=== PATIENT | female | born 1960 | race Caucasian/White ===

== ENCOUNTER → 2017-07-20 | Outpatient (CLI) | payer MEDICARE ==
--- NOTE | 2017-07-21 11:33 | XR ---
EXAMINATION TYPE: XR cervical spine comp DATE OF EXAM: 07/20/2017 COMPARISON: 03/26/2012 HISTORY: 56-year-old female with right arm numbness after hitting head 3 days ago, neck surgery in 25 04. TECHNIQUE: 5 views FINDINGS: No predental space widening or prevertebral soft tissue swelling. Mild endplate spondylosis above the fusion C3-C4. ACDF changes are present from C4 through C7 levels. Alignment is maintained. There is minimal bony spondylotic near foraminal narrowing on the left at C6-C7. Normal odontoid view. IMPRESSION: Uncomplicated appearance to the C4-C7 ACDF. There may be minimal bony neural foraminal narrowing on t he left at C6/C7.
== END ==
LOC: RADXRMAIN 15:51
PROVIDERS: ATTEND Nurse Practitioner Family
DX: M54.2 Cervicalgia (principal); R20.0 Anesthesia of skin; Z98.1 Arthrodesis status
CPT/HCPCS: 72050

== ENCOUNTER → 2020-07-16 | Outpatient (CLI) | payer MEDICARE ==
--- NOTE | 2020-07-16 16:01 | XR ---
Cervical spine HISTORY: Neck pain 6 views of the cervical spine correlated prior exam 07/20/2017 Patient is status post anterior cervical fusion and discectomy at C4-C7 as noted on prior exam. There is anatomic alignment. No significant foraminal encroachment evident, oblique images not optimal for the lower foramen on the left. Prevertebral soft tissues are normal. IMPRESSION: No acute fracture or subluxation.
--- NOTE | 2020-07-16 16:08 | XR ---
Lumbosacral spine HISTORY: Chronic back pain 5 views lumbosacral spine Lumbar vertebral bodies show preserved height, alignment, and bone mineralization. There is no eviden t spondylolysis. Anterolisthesis grade 1 L4-5. There is multilevel spondylosis. Some loss of disc hei ght L4-5 and L5-S1. Sclerosis is present in the posterior elements of the lower lumbar spine IMPRESSION: Degenerative disc disease and facet arthropathy. Listhesis L4-5.
== END | disposition home or self-care (01) ==
LOC: RADXRMAIN 13:05
PROVIDERS: ATTEND Nurse Practitioner Family
DX: M43.16 Spondylolisthesis, lumbar region (principal); M51.36 Other intervertebral disc degeneration, lumbar region; M47.816 Spondylosis without myelopathy or radiculopathy, lumbar region; M54.2 Cervicalgia
CPT/HCPCS: 72050; 72110

== ENCOUNTER → 2022-11-11 | Outpatient (CLI) | payer MEDICARE ==
[2022-11-11 13:45] LABS: African American GFR (CKD) >90 (>60 ml/min/1.73 sqM); Blood Urea Nitrogen 15 mg/dL (7-17); Non-African American GFR(CKD) >90 (>60 ml/min/1.73 sqM)
--- NOTE | 2022-11-11 14:20 | CT ---
EXAMINATION TYPE: CT chest w con CT DLP: 333.4 mGycm, Automated exposure control for dose reduction was used. DATE OF EXAM: 11/11/2022 2:10 PM COMPARISON: Chest radiograph from 08/10/2015 CLINICAL INDICATION:Female, 62 years old with history of R06.09 dyspnea; PHH, difficulty breathing TECHNIQUE: Multiple axial images were obtained through the chest following the administration of 100 cc of Isovue 300. . MIP was performed. Coronal and sagittal reformats reviewed. FINDINGS: LUNGS/ PLEURA: No pleural effusion, pneumothorax, focal consolidation. No suspicious pulmonary nodule s or masses. AIRWAY: Patent and unremarkable.. HEART: Size within normal limits. No pericardial effusion. MEDIASTINUM: No evidence of adenopathy. VASCULATURE: No aortic aneurysm. MUSCULOSKELETAL: No acute osseous abnormalities. Partial visualization of anterior cervical fusion layne rdware. SOFT TISSUES/LYMPH NODES: Unremarkable. LOWER NECK: No significant findings. UPPER ABDOMEN: No significant findings. IMPRESSION: No acute thoracic process. No visualized CT mildly corresponding to patient's symptomology.
== END | disposition home or self-care (01) ==
LOC: RADCTMAIN 12:49
PROVIDERS: ATTEND Internal Medicine Critical Care Medicine
DX: R06.09 Other forms of dyspnea (principal)
CPT/HCPCS: 82565; 84520; 71260; 36415; Q9967